=== PATIENT | female | born 1970 | race Caucasian/White ===

== ENCOUNTER 2017-08-08 12:24 | Emergency (ER) | payer MEDICARE ==
[2017-08-08 12:29] VITALS: BP 111/86
--- NOTE | 2017-08-08 12:52 | ER Report ---
History and Physical Time Seen By MD: 12:51 Hx. of Stated Complaint: PATIENT REPORTS THAT SHE STARTED HAVING ANXIETY ATTACK AFTER HAVING A MEETING WITH THE HERD TESTER REGARDING HER BOYFRIEND. SHE HAS A HISTORY OF ANXIETY AND USED TO TAKE XANAX FOR ANXIETY ATTACKS HPI/ROS 47 year old female with anxiety reaction . going through court w bf Allergies: Coded Allergies: atomoxetine (Verified Allergy, Severe, MENTAL STATUS CHANGES, 08/08/17) Home Meds No Active Prescriptions or Reported Meds Exposure to Second Hand Smoke?: No Hx Substance Use Disorder: Yes (SOBER SINCE MAY) Hx Alcohol Use: Yes Family History of: Other Constitutional Vital Sign - Last 24 Hours 08/08/17 08/08/17 08/08/17 08/08/17 12:26 12:29 12:39 12:54 Temp 97.8 Pulse 81 83 83 Resp 20 B/P (MAP) 111/86 111/86 (94) Pulse Ox 92 93 94 O2 Delivery Room Air Physical Exam General Appearance: Alert oriented anxious [Eyes:] Pupils equal and round no injection. Respiratory: Chest is non tender, lungs are clear to auscultation. Cardiac: regular rate and rhythm Gastrointestinal: Abdomen is soft and non tender, no masses, bowel sounds normal. Musculoskeletal: Neck: Neck is supple and non tender. Extremities have full range of motion and are non tender. Skin: No rashes or lesions. [DIFFERENTIAL DIAGNOSIS: After history and physical exam differential diagnosis was considered for anxiety, depression, situational anxiety Medical Decision Making Data Points Result Diagram: 08/08/17 1255 08/08/17 1255 Laboratory Hematology Test 08/08/17 12:55 Red Blood Count 4.72 M/uL (4.17-5.56) Mean Corpuscular Volume 96.0 fL (80.0-96.0) Mean Corpuscular Hemoglobin 33.2 pg (26.0-33.0) Mean Corpuscular Hemoglobin Concent 34.6 g/dL (32.0-36.0) Red Cell Distribution Width 14.1 % (11.5-14.5) Mean Platelet Volume 9.2 fL (7.2-11.1) Neutrophils (%) (Auto) 63.3 % (39.4-72.5) Lymphocytes (%) (Auto) 28.5 % (17.6-49.6) Monocytes (%) (Auto) 5.9 % (4.1-12.4) Eosinophils (%) (Auto) 1.6 % (0.4-6.7) Basophils (%) (Auto) 0.7 % (0.3-1.4) Nucleated RBC Relative Count (auto) 0.0 /100WBC Neutrophils # (Auto) 3.8 K/uL (2.0-7.4) Lymphocytes # (Auto) 1.7 K/uL (1.3-3.6) Monocytes # (Auto) 0.3 K/uL (0.3-1.0) Eosinophils # (Auto) 0.1 K/uL (0.0-0.5) Basophils # (Auto) 0.0 K/uL (0.0-0.1) Nucleated RBC Absolute Count (auto) 0.00 K/uL Urine Color Yellow Urine Clarity Slightly-cloudy Urine pH 6.0 pH (4.8-9.5) Urine Specific [place] 1.008 Urine Protein Negative mg/dL (NEGATIVE) Urine Glucose (UA) Negative mg/dL (NEGATIVE) Urine Ketones Negative mg/dL (NEGATIVE) Urine Blood Negative (NEGATIVE) Urine Nitrite Positive (NEGATIVE) Urine Bilirubin Negative (NEGATIVE) Urine Urobilinogen Negative mg/dL (0.2-1.9) Urine Leukocyte Esterase Trace (NEGATIVE) Urine RBC None /HPF (0-2/HPF) Urine WBC 6 /HPF (0-5/HPF) Urine Squamous Epithelial Cells Many /LPF (</=FEW) Urine Bacteria Few /HPF (NONE-FEW) Urine Mucus Few /HPF (NONE-FEW) Sodium Level 142 mmol/L (137-145) Potassium Level 3.0 mmol/L (3.5-5.0) Chloride Level 104 mmol/L (98-107) Carbon Dioxide Level 25 mmol/L (22-31) Blood Urea Nitrogen 9 mg/dl (7-18) Creatinine 0.70 mg/dl (0.52-1.04) Glomerular Filtration Rate Calc > 60.0 Random Glucose 105 mg/dl (75-110) Calcium Level 8.6 mg/dl (8.4-10.2) Magnesium Level 1.4 mg/dl (1.7-2.2) Total Bilirubin 0.7 mg/dl (0.2-1.3) Aspartate Amino Transf (AST/SGOT) 26 U/L (0-35) Alanine Aminotransferase (ALT/SGPT) 30 U/L (0-56) Alkaline Phosphatase 67 U/L (0-126) Total Protein 6.6 gm/dl (6.3-8.2) Albumin 3.7 g/dl (3.5-5.0) Thyroid Stimulating Hormone (TSH) 2.58 uIU/ml (0.46-4.68) Salicylates Level < 10 mg/L Salicylate Last Dose Date unk Urine Opiates Screen Negative Acetaminophen Level < 10 ug/ml Urine Barbiturates Screen Negative Ur Tricyclic Antidepressants Screen Negative Urine Phencyclidine Screen Negative Urine Amphetamines Screen Negative Urine Benzodiazepines Screen Negative Urine Cocaine Screen Negative Urine Cannabinoids Screen Negative Serum Alcohol < 10 mg/dl Chemistry Test 08/08/17 12:55 White Blood Count 5.9 k/uL (4.5-11.0) Red Blood Count 4.72 M/uL (4.17-5.56) Hemoglobin 15.7 g/dL (12.0-16.0) Hematocrit 45.3 % (34.0-47.0) Mean Corpuscular Volume 96.0 fL (80.0-96.0) Mean Corpuscular Hemoglobin 33.2 pg (26.0-33.0) Mean Corpuscular Hemoglobin Concent 34.6 g/dL (32.0-36.0) Red Cell Distribution Width 14.1 % (11.5-14.5) Platelet Count 189 K/uL (150-450) Mean Platelet Volume 9.2 fL (7.2-11.1) Neutrophils (%) (Auto) 63.3 % (39.4-72.5) Lymphocytes (%) (Auto) 28.5 % (17.6-49.6) Monocytes (%) (Auto) 5.9 % (4.1-12.4) Eosinophils (%) (Auto) 1.6 % (0.4-6.7) Basophils (%) (Auto) 0.7 % (0.3-1.4) Nucleated RBC Relative Count (auto) 0.0 /100WBC Neutrophils # (Auto) 3.8 K/uL (2.0-7.4) Lymphocytes # (Auto) 1.7 K/uL (1.3-3.6) Monocytes # (Auto) 0.3 K/uL (0.3-1.0) Eosinophils # (Auto) 0.1 K/uL (0.0-0.5) Basophils # (Auto) 0.0 K/uL (0.0-0.1) Nucleated RBC Absolute Count (auto) 0.00 K/uL Urine Color Yellow Urine Clarity Slightly-cloudy Urine pH 6.0 pH (4.8-9.5) Urine Specific [place] 1.008 Urine Protein Negative mg/dL (NEGATIVE) Urine Glucose (UA) Negative mg/dL (NEGATIVE) Urine Ketones Negative mg/dL (NEGATIVE) Urine Blood Negative (NEGATIVE) Urine Nitrite Positive (NEGATIVE) Urine Bilirubin Negative (NEGATIVE) Urine Urobilinogen Negative mg/dL (0.2-1.9) Urine Leukocyte Esterase Trace (NEGATIVE) Urine RBC None /HPF (0-2/HPF) Urine WBC 6 /HPF (0-5/HPF) Urine Squamous Epithelial Cells Many /LPF (</=FEW) Urine Bacteria Few /HPF (NONE-FEW) Urine Mucus Few /HPF (NONE-FEW) Glomerular Filtration Rate Calc > 60.0 Calcium Level 8.6 mg/dl (8.4-10.2) Magnesium Level 1.4 mg/dl (1.7-2.2) Total Bilirubin 0.7 mg/dl (0.2-1.3) Aspartate Amino Transf (AST/SGOT) 26 U/L (0-35) Alanine Aminotransferase (ALT/SGPT) 30 U/L (0-56) Alkaline Phosphatase 67 U/L (0-126) Total Protein 6.6 gm/dl (6.3-8.2) Albumin 3.7 g/dl (3.5-5.0) Thyroid Stimulating Hormone (TSH) 2.58 uIU/ml (0.46-4.68) Salicylates Level < 10 mg/L Salicylate Last Dose Date unk Urine Opiates Screen Negative Acetaminophen Level < 10 ug/ml Urine Barbiturates Screen Negative Ur Tricyclic Antidepressants Screen Negative Urine Phencyclidine Screen Negative Urine Amphetamines Screen Negative Urine Benzodiazepines Screen Negative Urine Cocaine Screen Negative Urine Cannabinoids Screen Negative Serum Alcohol < 10 mg/dl Toxicology Test 08/08/17 12:55 Salicylates Level < 10 mg/L Salicylate Last Dose Date unk Urine Opiates Screen Negative Acetaminophen Level < 10 ug/ml Urine Barbiturates Screen Negative Ur Tricyclic Antidepressants Screen Negative Urine Phencyclidine Screen Negative Urine Amphetamines Screen Negative Urine Benzodiazepines Screen Negative Urine Cocaine Screen Negative Urine Cannabinoids Screen Negative Serum Alcohol < 10 mg/dl Urinalysis Test 08/08/17 12:55 Urine Color Yellow Urine Clarity Slightly-cloudy Urine pH 6.0 pH (4.8-9.5) Urine Specific [place] 1.008 Urine Protein Negative mg/dL (NEGATIVE) Urine Glucose (UA) Negative mg/dL (NEGATIVE) Urine Ketones Negative mg/dL (NEGATIVE) Urine Blood Negative (NEGATIVE) Urine Nitrite Positive (NEGATIVE) Urine Bilirubin Negative (NEGATIVE) Urine Urobilinogen Negative mg/dL (0.2-1.9) Urine Leukocyte Esterase Trace (NEGATIVE) Urine RBC None /HPF (0-2/HPF) Urine WBC 6 /HPF (0-5/HPF) Urine Squamous Epithelial Cells Many /LPF (</=FEW) Urine Bacteria Few /HPF (NONE-FEW) Urine Mucus Few /HPF (NONE-FEW) ED Course/Re-evaluation ED Course This discussed this patient with Dr. Montenegro she agrees to admit this patient to behavioral health lab work discuss with Dr. Montenegro she does have a small UTI we' ll start treatment with Cipro 500 mg in the emergency room Re-evaluation After 1 mg Ativan very calm and cooperative emergency room Decision to Disposition Date: Aug 08, 2017 Decision to Disposition Time: 12:50 Depart Departure Latest Vital Signs Vital Signs Date Time Temp Pulse Resp B/P (MAP) Pulse Ox O2 Delivery O2 Flow Rate FiO2 08/08/17 12:54 83 94 08/08/17 12:29 111/86 (94) 08/08/17 12:26 97.8 20 Room Air Impression: Primary Impression: ANXIETY DISORDER DUE TO KNOWN PHYSIOLOGICAL CONDITION Condition: Improved Disposition: [facility]FER [facility] New Scripts No Active Prescriptions or Reported Meds APRVEZ MCMANUS Aug 08, 2017 12:51
[2017-08-08] MEDS ORDERED: LORazepam 1 MG TAB PO ONE (12:55)
[2017-08-08 13:18] LABS: PLATELET COUNT, AUTOMATED 189 K/uL (150-450)
[2017-08-08] MEDS ORDERED: MAGNESIUM OXIDE 400 MG TAB PO ONE (13:35)
[2017-08-08] MEDS ORDERED: POTASSIUM CHL 20 MEQ TABCR PO ONE (13:35)
[2017-08-08] MEDS ORDERED: NICOTINE INH SYSTEM 10 MG/INH INH PRN (14:05)
[2017-08-08] MEDS ORDERED: NICOTINE CARTRIDGE 1 EA PO PRN (14:05)
[2017-08-08] MEDS ORDERED: CIPROFLOXACIN 500 MG TAB PO ONE (14:05)
== END 2017-08-08 14:29 ==
LOC: ER 12:25
DX: F06.4 Anxiety disorder due to known physiological condition (principal)
CPT/HCPCS: 36415; 80305; 81001; 83735; 84443; 85025; 87077; 87088; 87186; 99285; A9270; G0480; 80320; 80329; 82040; 82247; 82310; 82374; 82435; 82565; 82947; 84075; 84132; 84155; 84295; 84450; 84460; 84520

== ENCOUNTER 2017-08-08 14:21 | Inpatient (IN) | payer MEDICARE ==
[~2017-08-08] VITALS: Ht 170.2 cm; Wt 89.4 kg
[2017-08-08 14:32] VITALS: BP 104/70
[2017-08-08] MEDS ORDERED: NICOTINE CARTRIDGE 1 EA PO PRN (15:20)
[2017-08-08] MEDS ORDERED: NICOTINE INH SYSTEM 10 MG/INH INH PRN (15:20)
[2017-08-08] MEDS ORDERED: ACETAMINOPHEN 325 MG TAB PO PRN (15:20)
[2017-08-08] MEDS ORDERED: MAG HYD/AL HYD/SIMETH 30ML UDC PO PRN (15:20)
[2017-08-08] MEDS ORDERED: hydrOXYzine PAMOATE 25 MG CAP PO PRN (15:20)
[2017-08-08] MEDS: LORazepam 1 MG TAB PO PRN (22:20)
[2017-08-08 23:12] VITALS: BP 104/66
[2017-08-09] MEDS: MULTIVITAMINS PO SCH (08:28)
[2017-08-09] MEDS ORDERED: lamoTRIgine 25 MG TAB PO ONE (13:30)
[2017-08-09 14:00] VITALS: BP 118/68
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
[2017-08-09] MEDS: LORazepam 1 MG TAB PO PRN (18:11)
[2017-08-09] MEDS ORDERED: ARIPiprazole 10 MG TAB PO SCH (21:00)
[2017-08-09] MEDS ORDERED: CIPROFLOXACIN 500 MG TAB PO SCH (21:00)
[2017-08-09] MEDS: CIPROFLOXACIN 500 MG TAB PO SCH (21:37)
[2017-08-10 06:38] VITALS: BP 90/48
[2017-08-10] MEDS: CIPROFLOXACIN 500 MG TAB PO SCH (08:47)
[2017-08-10] MEDS: MULTIVITAMINS PO SCH (08:47)
[2017-08-10] MEDS ORDERED: lamoTRIgine 100 MG TAB PO SCH (09:00)
[2017-08-10] MEDS ORDERED: ARIP10TA4 PO (09:53)
[2017-08-10] MEDS ORDERED: CIPR-214 PO (09:54)
[2017-08-10] MEDS ORDERED: NIC10R INH (09:55)
[2017-08-10] MEDS ORDERED: LAMO100T56 PO (09:55)
[2017-08-10] MEDS ORDERED: HYDR50CA47 PO (09:57)
--- NOTE | 2017-08-10 15:08 | BHS Discharge Summary ---
[facility] Discharge Summary [id number] Encounter Date: Aug 10, 2017 [id number] Encounter Time: 10:00 Reason-Hosp/Final Diag (DSM-V): (1) Bipolar disorder, mixed Hospital Course & Plan: Pt was admitted to [facility]. She was essentially cooperative, though at times was entitled and engaged in de-valuing staff and her treatment. Complained about not being able to use her cell phone, was angry with me when I told her amphetamines and benzo's were contraindicated given her substance use disorder. Was irritated to be diagnosed with methamphetamine use disorder "since I haven't used since May." But never any aggression, and usually calmed down fairly easily. Did show labile mood, irritability, pressure of speech, histrionics-- all of which may indeed support a bipolar-spectrum disorder and certainly merit treatment with mood stabilizers. We initiated Abilify 10 mg q HS and lamictal 50 mg q am, which was later increased to 100 mg. No evidence of rash, EPS, nor oversedation during her short hospital stay. Pt understands need to stay on mood stabilizers daily. We did discharge her with a prn of vistaril 50 mg for sleep which she understands can be used on a prn basis. Pt also discharged on 3 more days of cipro to treat UTI. She will follow up at [facility] on September 05. At no time during her hospital stay did she express any suicidal or homicidal ideation. At time of discharge she is considered stable without evidence of risk for self harm or harm to others. (2) Methamphetamine use disorder, severe, in controlled environment (3) Cluster B personality disorder in adult Physical Exam Latest Vital Signs Vital Signs 08/09/17 08/10/17 14:00 06:38 Temp 98.3 Pulse 78 Resp 15 B/P (MAP) 90/48 (62) Pulse Ox 96 O2 Delivery Room Air Mental Status Exam General Appearance: Casual, Well Groomed, Good Eye Contact, Cooperative, Good Interaction Speech: Clear, Spontaneous, Normal Rate, Normal Rhythm, Normal Volume, Normal Tone Mood: Euthymic Affect: Full and Appropriate Thought Process: Organized, Logical, Goal Directed Thought Content: No Suicidal Ideation, No Homicidal Ideation, No Delusions, No Auditory Halllucinations, No Visual Hallucinations, No Thought Broadcasting, No Ideas of Reference, No Obsessions, No Compulsions, No Other Sensorium: Clear Cognition: Alert & Oriented-Person, Alert & Oriented-Place, Alert & Oriented- Time, [id number]-[id number]-Ametbardm Memory: Immediate, Recent, Remote Intelligence: Average Insight Judgment: Fair Departure Condition: Improved Discharge Instructions Home Meds Reported Medications Hydroxyzine Pamoate (VISTARIL) 50 Mg Capsule, 50 MG PO Q6H Y for INSOMNIA, CAPSULE 08/10/17 Nicotine (NICOTROL) 10 Mg/Inh Ctr, 10 MG INH PRN Y for NICOTINE REPLACEMENT 08/10/17 Lamotrigine (LAMICTAL) 100 Mg Tablet, 100 MG PO QAM 08/10/17 Ciprofloxacin Hcl (CIPROFLOXACIN HCL) 500 Mg Tablet, 500 MG PO Q12H 08/10/17 Aripiprazole (ABILIFY) 10 Mg Tablet, 10 MG PO QHS, TAB 08/10/17 Multpiple Antipsychotics Used: No Diet: Regular Special Instructions: Discharge today. Follow up with [facility]. HOMER CONN MD Aug 10, 2017 15:08
== END 2017-08-10 10:10 | disposition home or self-care (01) | DRG 885 ==
LOC: BHS 14:21
PROVIDERS: ADMIT Psychiatry & Neurology Psychiatry; ATTEND Psychiatry & Neurology Psychiatry
DX: F31.60 Bipolar disorder, current episode mixed, unspecified (principal); F15.20 Other stimulant dependence, uncomplicated; N39.0 Urinary tract infection, site not specified; F90.9 Attention-deficit hyperactivity disorder, unspecified type; F43.12 Post-traumatic stress disorder, chronic; F60.9 Personality disorder, unspecified; Z91.419 Personal history of unspecified adult abuse; Z90.49 Acquired absence of other specified parts of digestive tract
CPT/HCPCS: 84703; Q0177

== ENCOUNTER → 2017-08-08 | Outpatient (CLI) | payer MEDICARE, MEDICAID ==
[~2017-08-08] MED LIST: ARIP10TA4 PO; CIPR-214 PO; HYDR50CA47 PO; LAMO100T56 PO; NIC10R INH
== END ==
LOC: AMB 12:02
PROVIDERS: ATTEND Nurse Practitioner
DX: F41.8 Other specified anxiety disorders (principal)
CPT/HCPCS: A0425; A0428